=== PATIENT | male | born 1945 | race Caucasian/White ===

== ENCOUNTER 2018-05-10 10:36 | Observation (INO) | payer MEDICARE ==
[~2018-05-10] VITALS: Ht 182.9 cm; Wt 91.6 kg
[2018-05-10] MEDS ORDERED: NS(*) 0.9% 1000 ML BAG 1,000 ML IV ONE (10:44)
--- NOTE | 2018-05-10 10:49 | EKG ---
FACILITY: [facility] PATIENT NAME: DAVID CM : [id number] MR: [id number] V: [id number] EXAM DATE: ORDERING PHYSICIAN: LORETO GARNER TECHNOLOGIST: Bridget Warren Reason : Chest pain Blood Pressure : / mmHG Vent. Rate : 064 BPM Atrial Rate : 064 BPM P-R Int : 180 ms QRS Dur : 100 ms QT Int : 414 ms P-R-T Axes : -12 -24 000 degrees QTc Int : 427 ms Normal sinus rhythm Moderate voltage criteria for LVH, may be normal variant Borderline ECG No previous ECGs available Referred By: Confirmed By:
[2018-05-10] MEDS ORDERED: ATEN-1 PO (10:55)
[2018-05-10] MEDS ORDERED: ATEN-65 PO (10:55)
[2018-05-10] MEDS ORDERED: ASPI-870 (10:55)
[2018-05-10] MEDS ORDERED: [UNRECOGNIZED DRUG - OTHER] PO (10:57)
[2018-05-10] MEDS ORDERED: MULT-1335 PO (11:03)
[2018-05-10] MEDS ORDERED: NITR0.4T3 SL (11:03)
[2018-05-10] MEDS ORDERED: GABA-549 PO (11:03)
[2018-05-10] MEDS ORDERED: NATURE THROID (11:03)
[2018-05-10] MEDS ORDERED: CHOL10005 PO (11:03)
[2018-05-10] MEDS ORDERED: CALC600T63 PO (11:03)
[2018-05-10] MEDS ORDERED: NAPR220C12 PO (11:03)
[2018-05-10] MEDS ORDERED: FISH1CAP15 PO (11:03)
[2018-05-10] MEDS ORDERED: PRAV20TA65 PO (11:03)
[2018-05-10 11:10] LABS: PLATELET COUNT, AUTOMATED 144 K/uL (150-450)
--- NOTE | 2018-05-10 11:39 | ER Report ---
History and Physical Time Seen By MD: 10:35 Hx. of Stated Complaint: CHEST PAIN STARTED ABOUT AN HOUR AGO. PT TOOK ON NITRO ON HIS OWN THEN WENT TO OUR URGENT CARE. EMS CALLED EMS GAVE AN ADDITIONAL NITRO AND 324MG PO ASA. ATTEMPTED IV PER EMS FAILED PT ARRIVED VIA GURNEY ALERT ORIENTATED. IV STARTED. PT STATES HE HAS NAUSEA THAT COMES AND GOES NOT HUNGRY THIS AM R.T. AT BEDSIDE DOING EKG HPI/ROS CHIEF COMPLAINT: Chest pain HISTORY OF PRESENT ILLNESS: Patient is a 72-year-old male who was driving across country in his mobile home started noticing unilateral leg swelling this is been going on for the last couple of days he also noticed earlier in the day today some chest pain he has a history of a myocardial infarction about 10 years prior to no stents were placed says the chest pain is parasternal with some left arm involvement he also notes some numbness in his left arm as well the patient had associated shortness of breath but he is from [place] and is unfamiliar with altitude. Patient states no loosening or alleviating factors other that he took a sublingual nitroglycerin which did make it feel better and an aspirin. On arrival here his pain has subsided since 2 out of 10. Patient has no focal neurological deficits patient did notice that he had some numbness in his left hand which subsequently resolved. Patient has abdominal pain nausea vomiting diarrhea fever chills or additional complaints noted other than a mild headache which is also resolved REVIEW OF SYSTEMS: Respiratory: No cough, no dyspnea. Cardiovascular: Chest pain no palpitations Gastrointestinal: No vomiting, no abdominal pain. Musculoskeletal: No back pain. Remainder of the 14 system rev: Yes Allergies: Uncoded Allergies: CATS (Allergy, Severe, 05/10/18) Home Meds Reported Medications [Nature Throid] No Conflict Check, 2.75 GR QDAY 05/10/18 Nitroglycerin (NITROGLYCERIN) 0.4 Mg Tab.subl, 0.4 MG SL Q5MIN 05/10/18 Cholecalciferol (Vitamin D3) (VITAMIN D3) 1,000 Unit Tablet, 5000 UNIT PO QDAY, TAB 05/10/18 Pravastatin Sodium (PRAVACHOL) 20 Mg Tablet, 10 MG PO QDAY, TAB 05/10/18 Naproxen Sodium (ALEVE) 220 Mg Capsule, 220 MG PO TID Y for PRN, CAPSULE 05/10/18 Gabapentin (GABAPENTIN) 300 Mg Capsule, 300 MG PO BID, CAPSULE 05/10/18 Fish Oil/Dha/Epa (FISH OIL 1,200 MG FISH OIL) 1 Each Capsule, 1 EACH PO QDAY, CAPSULE 05/10/18 Multivitamin With Minerals (MULTIPLE VITAMIN) 1 Each Tablet, 1 EACH PO QDAY, TAB 05/10/18 Calcium Carbonate (CALCIUM) 600 Mg Tablet, 600 MG PO QDAY 05/10/18 [Black Raspberry] No Conflict Check, 425 MG PO DAILY 05/10/18 Atenolol (ATENOLOL) 25 Mg Tablet, 1 TAB PO QDAY, TAB 05/10/18 Aspirin (Children's Aspirin) 81 Mg Tab.chew, 81 MG QDAY 05/10/18 Reviewed Nurses Notes: Yes Old Medical Records Reviewed: Yes Hx Substance Use Disorder: No Hx Alcohol Use: Yes (OCC) Constitutional Vital Sign - Last 24 Hours 05/10/18 05/10/18 05/10/18 05/10/18 10:38 10:38 10:48 10:56 Temp 97.7 Pulse 71 52 Resp 12 17 B/P (MAP) 131/76 (94) 131/76 Pulse Ox 96 97 O2 Delivery Nasal Cannula O2 Flow Rate 4.0 05/10/18 05/10/18 05/10/18 05/10/18 11:00 11:06 11:11 11:25 Pulse 58 54 Resp 21 20 B/P (MAP) 137/73 (94) 141/74 (96) Pulse Ox 98 97 05/10/18 05/10/18 05/10/18 05/10/18 11:30 11:35 12:00 12:05 Pulse 49 51 Resp 18 23 B/P (MAP) 136/79 (98) 136/79 (98) Pulse Ox 98 98 05/10/18 05/10/18 05/10/18 05/10/18 12:30 12:35 13:00 13:10 Pulse 43 48 Resp 11 15 B/P (MAP) 146/73 (97) 157/75 (102) Pulse Ox 98 98 05/10/18 05/10/18 05/10/18 05/10/18 13:30 13:40 14:00 14:10 Pulse 43 53 Resp 17 11 B/P (MAP) 147/73 (97) 155/73 (100) Pulse Ox 99 94 Physical Exam General Appearance: [The patient is alert, has no immediate need for airway protection and no current signs of toxicity.] [ ] Eyes: Pupils equal and round no injection. Respiratory: Chest is non tender, lungs are clear to auscultation. Cardiac: regular rate and rhythm [ ] Gastrointestinal: Abdomen is soft and non tender, no masses, bowel sounds normal. Musculoskeletal: Neck: Neck is supple and non tender. Extremities have full range of motion and are non tender. Skin: No rashes or lesions. [ ] DIFFERENTIAL DIAGNOSIS: After history and physical exam differential diagnosis was considered for acute myocardial infarction pulmonary emboli stroke DVT aortic dissection Medical Decision Making Data Points Result Diagram: 05/10/18 1041 05/10/18 1041 Laboratory Hematology Test 05/10/18 10:41 05/10/18 11:25 05/10/18 13:23 Red Blood Count 4.92 M/uL (4.00-5.60) Mean Corpuscular Volume 82.7 fL (80.0-96.0) Mean Corpuscular Hemoglobin 29.4 pg (26.0-33.0) Mean Corpuscular Hemoglobin Concent 35.6 g/dL (32.0-36.0) Red Cell Distribution Width 13.4 % (11.5-14.5) Mean Platelet Volume 9.4 fL (7.2-11.1) Neutrophils (%) (Auto) 68.2 % (39.4-72.5) Lymphocytes (%) (Auto) 20.4 % (17.6-49.6) Monocytes (%) (Auto) 8.1 % (4.1-12.4) Eosinophils (%) (Auto) 2.4 % (0.4-6.7) Basophils (%) (Auto) 0.9 % (0.3-1.4) Nucleated RBC Relative Count (auto) 0.1 /100WBC Neutrophils # (Auto) 3.5 K/uL (2.0-7.4) Lymphocytes # (Auto) 1.0 K/uL (1.3-3.6) Monocytes # (Auto) 0.4 K/uL (0.3-1.0) Eosinophils # (Auto) 0.1 K/uL (0.0-0.5) Basophils # (Auto) 0.0 K/uL (0.0-0.1) Nucleated RBC Absolute Count (auto) 0.01 K/uL Sodium Level 138 mmol/L (137-145) Potassium Level 3.7 mmol/L (3.5-5.0) Chloride Level 104 mmol/L (98-107) Carbon Dioxide Level 25 mmol/L (22-30) Blood Urea Nitrogen 16 mg/dl (9-21) Creatinine 0.80 mg/dl (0.66-1.25) Glomerular Filtration Rate Calc > 60.0 Random Glucose 160 mg/dl (75-110) Calcium Level 8.9 mg/dl (8.4-10.2) Total Bilirubin 1.0 mg/dl (0.2-1.3) Aspartate Amino Transf (AST/SGOT) 52 U/L (0-35) Alanine Aminotransferase (ALT/SGPT) 79 U/L (0-56) Alkaline Phosphatase 59 U/L (0-126) Total Protein 6.6 g/dl (6.3-8.2) Albumin 3.8 g/dl (3.5-5.0) Prothrombin Time 13.0 seconds (12.0-14.4) Prothromb Time International Ratio 0.99 Activated Partial Thromboplast Time 24 seconds (23-35) D-Dimer Quantitative (PE/DVT) 0.48 ug/ml (0-0.50) Troponin I < 0.012 ng/ml Chemistry Test 05/10/18 10:41 05/10/18 11:25 05/10/18 13:23 White Blood Count 5.1 k/uL (4.5-11.0) Red Blood Count 4.92 M/uL (4.00-5.60) Hemoglobin 14.5 g/dL (14.0-18.0) Hematocrit 40.7 % (42.0-52.0) Mean Corpuscular Volume 82.7 fL (80.0-96.0) Mean Corpuscular Hemoglobin 29.4 pg (26.0-33.0) Mean Corpuscular Hemoglobin Concent 35.6 g/dL (32.0-36.0) Red Cell Distribution Width 13.4 % (11.5-14.5) Platelet Count 144 K/uL (150-450) Mean Platelet Volume 9.4 fL (7.2-11.1) Neutrophils (%) (Auto) 68.2 % (39.4-72.5) Lymphocytes (%) (Auto) 20.4 % (17.6-49.6) Monocytes (%) (Auto) 8.1 % (4.1-12.4) Eosinophils (%) (Auto) 2.4 % (0.4-6.7) Basophils (%) (Auto) 0.9 % (0.3-1.4) Nucleated RBC Relative Count (auto) 0.1 /100WBC Neutrophils # (Auto) 3.5 K/uL (2.0-7.4) Lymphocytes # (Auto) 1.0 K/uL (1.3-3.6) Monocytes # (Auto) 0.4 K/uL (0.3-1.0) Eosinophils # (Auto) 0.1 K/uL (0.0-0.5) Basophils # (Auto) 0.0 K/uL (0.0-0.1) Nucleated RBC Absolute Count (auto) 0.01 K/uL Glomerular Filtration Rate Calc > 60.0 Calcium Level 8.9 mg/dl (8.4-10.2) Total Bilirubin 1.0 mg/dl (0.2-1.3) Aspartate Amino Transf (AST/SGOT) 52 U/L (0-35) Alanine Aminotransferase (ALT/SGPT) 79 U/L (0-56) Alkaline Phosphatase 59 U/L (0-126) Total Protein 6.6 g/dl (6.3-8.2) Albumin 3.8 g/dl (3.5-5.0) Prothrombin Time 13.0 seconds (12.0-14.4) Prothromb Time International Ratio 0.99 Activated Partial Thromboplast Time 24 seconds (23-35) D-Dimer Quantitative (PE/DVT) 0.48 ug/ml (0-0.50) Troponin I < 0.012 ng/ml Coagulation Test 05/10/18 11:25 Prothrombin Time 13.0 seconds Prothromb Time International Ratio 0.99 Activated Partial Thromboplast Time 24 seconds D-Dimer Quantitative (PE/DVT) 0.48 ug/ml ED Course/Re-evaluation ED Course ED clinical course medical decision-making 72-year-old male comes here with left lower edematous swelling shortness of breath and chest pain is been driving for 12 hours DVT rule out of the lower extremity was negative CT angiogram showed some passive congestion otherwise no sign of pulmonary emboli EKG markers troponins were all negative patient has a history of prior CT he had chest pain relieved with nitroglycerin rating his arm and relieved on arrival to the emergency room the 2nd dose of nitroglycerin due to his cardiac history and the presence of pain relieved with nitroglycerin and his persistent chest discomfort we'll be admitting him for cardiac rule out Decision to Disposition Date: May 10, 2018 Decision to Disposition Time: 14:20 Depart Departure Latest Vital Signs Vital Signs Date Time Temp Pulse Resp B/P (MAP) Pulse Ox O2 Delivery O2 Flow Rate FiO2 05/10/18 14:10 53 11 94 05/10/18 14:00 155/73 (100) 05/10/18 10:48 4.0 05/10/18 10:38 97.7 Nasal Cannula Impression: Primary Impression: Chest pain Condition: Improved Disposition: Admitted from ER LORETO GARNER MD May 10, 2018 11:39
--- NOTE | 2018-05-10 11:47 | RADIOLOGY IMAGING REPORT ---
FACILITY: [facility] - [place] PATIENT NAME: Cornelio Mcdowell : 1945 MR: [id number] V: [id number] EXAM DATE: ORDERING PHYSICIAN: LORETO GARNER TECHNOLOGIST: Location: [facility] Patient: Cornelio Mcdowell : 1945 Visit/Account:[id number] Date of Sevice: 05/10/2018 CHEST PA AND LAT Additional pertinent History: Chest pain COMPARISON STUDIES: None FINDINGS: Support lines and catheters: None Lungs and Pleura: Lung robertson well expanded with no infiltrates or consolidations. No parenchymal ma ss lesions are seen. There are no effusions Heart and vasculature: Negative. Saige and Mediastinum: Negative. Bones and Chest wall: Bony structures unremarkable. No compression deformities or fractures. Ossif ication anterior longitudinal ligament with features of the thoracic spine compatible with ankylosing spondylitis. Upper Abdomen: Negative. IMPRESSION: 1. Negative chest for acute cardiopulmonary disease.. Thoracic spine with features suggesting ankyl osing spondylitis. Report Dictated By: Osbaldo Ring MD at 05/10/2018 11:38 AM Report E-Signed By: Osbaldo Ring MD at 05/10/2018 11:43 AM WSN:[email or web address]
[2018-05-10 11:55] LABS: INR 0.99
--- NOTE | 2018-05-10 12:45 | RADIOLOGY IMAGING REPORT ---
[place] [facility] [place] NAME: Cornelio Mcdowell : 1945 MR: [id number] V: [id number] EXAM DATE: ORDERING PHYSICIAN: LORETO GARNER TECHNOLOGIST: Location: [facility] [place] Patient: Cornelio Mcdowell : 1945 Visit/Account:[id number] Date of Sevice: 05/10/2018 EXAMINATION: Left LOWER EXTREMITY VENOUS DOPPLER ULTRASOUND DATE: 05/10/2018 12:35 PM CLINICAL INFORMATION: Evaluate for DVT REASON FOR STUDY: swelling, pain TECHNIQUE: Grayscale, color Doppler, and spectral Doppler ultrasound was performed of the lower extre mity veins to evaluate for deep venous thrombosis. COMPARISON: None FINDINGS: The left common femoral, femoral, and popliteal veins are compressible with normal flow on color Dopp ler imaging. There is also normal Doppler flow of the greater saphenous vein at the confluence with t he common femoral vein. The left posterior tibial and peroneal veins demonstrate normal flow The contralateral right common femoral vein demonstrates normal flow on color Doppler and respiratory variations on spectral Doppler. Anterior to the tibia within the subcutaneous soft tissues is an avascular approximately 1.9 x 0.5 cm predominantly anechoic collection that may contain some debris. IMPRESSION: 1. No evidence of deep venous thrombosis in the left lower extremity veins. 2. Predominantly anechoic fluid collection anterior to the tibia could potentially be a resolving hem atoma but is nonspecific by ultrasound. Report Dictated By: Pallavi Castillo MD at 05/10/2018 12:35 PM Report E-Signed By: Pallavi Castillo MD at 05/10/2018 12:41 PM WSN:[id number]
[2018-05-10] MEDS ORDERED: NS 0.9% 25 ML BAG 25 ML ONE ×2 (12:46→12:49)
[2018-05-10] MEDS ORDERED: IOPAMIDOL 76% 75 ML INFUS BTL 75 ML ONE (12:46)
--- NOTE | 2018-05-10 13:31 | RADIOLOGY IMAGING REPORT ---
FACILITY: PATIENT NAME: Cornelio Mcdowell : 1945 MR: [id number] V: [id number] EXAM DATE: ORDERING PHYSICIAN: LORETO GARNER TECHNOLOGIST: Location: [facility] Patient: Cornelio Mcdowell : 1945 Visit/Account:[id number] Date of Sevice: 05/10/2018 CT Head without contrast Indication: Weakness. Comparison: None available Technique: Axial CT images were obtained through the brain from the skull base to the vertex without administration of IV contrast. Reformatted coronal and sagittal images were also obtained. One of the following dose optimization techniques was utilized in the performance of this exam: autom ated exposure control; adjustment of the mA and/or kV according to the patient's size; or use of an i terative reconstruction technique. Specific details can be referenced in the facility's radiology CT exam operational policy. Findings: No evidence of mass, mass effect, or midline shift. No acute intracranial hemorrhage or acute territorial infarction. No extra-axial fluid collection or hydrocephalus. Mild age-related cerebral atrophy. No abnormal dens ity. Yost/white matter differentiation appears normal. Bony structures show no fractures or lesions. Rightward deviation nasal septum. The visualized paranasal sinuses and mastoid air cells are clear. IMPRESSION: 1. No acute intracranial abnormality. Report Dictated By: Pj Austin at 05/10/2018 1:23 PM Report E-Signed By: Pj Austin at 05/10/2018 1:27 PM WSN:[id number]
--- NOTE | 2018-05-10 13:35 | RADIOLOGY IMAGING REPORT ---
[place] [facility] [place]: Cornelio Mcdowell : 1945 MR: [id number] V: [id number] EXAM DATE: ORDERING PHYSICIAN: EMILIANA BEJARANO TECHNOLOGIST: Location: [facility] Patient: Cornelio Mcdowell : 1945 Visit/Account:[id number] Date of Sevice: 05/10/2018 CT ANGIOGRAM OF THE CHEST WITH INTRAVENOUS CONTRAST, PE PROTOCOL DATE OF EXAM: 05/10/2018 11:57 COMPARISON: Chest radiograph of the same day. INDICATION: eval for PE. TECHNIQUE: Contrast enhanced chest CT performed during the injection of 75 ml of Isovue-370. Three-d imensional (MIP) reconstructions were performed. FINDINGS: There is no pulmonary arterial filling defect. No effusion, consolidation, or pneumothorax. Mild depe ndent atelectasis at the lung bases. Thyroid: The thyroid appears to have been resected. Thoracic inlet: There is no thoracic inlet lymphadenopathy. Heart and great vessels: Heart size is normal. Mediastinum and pamela: A few mediastinal lymph nodes are mildly prominent. Lungs and pleura: As above. Breast and axilla: Breast tissue is unremarkable by CT. Bones and soft tissues: Bone density is diffusely decreased. Thoracic kyphosis is exaggerated. There is fusion along much of the anterior longitudinal ligament and across numerous spinous processes. Upper abdomen: Liver parenchymal density is markedly decreased. IMPRESSION: 1. Negative for pulmonary arterial embolus. The lungs are clear except for trace atelectasis. 2. Marked hepatic steatosis. 3. Anterior longitudinal ligament and spinous process fusion in the thoracic spine with exaggerated t horacic kyphosis suggests ankylosing spondylitis. One of the following dose optimization techniques was utilized in the performance of this exam: Autom ated exposure control; adjustment of the mA and/or kV according to the patient's size; or use of an i terative reconstruction technique. Specific details can be referenced in the facility's radiology C T exam operational policy. Report Dictated By: Pallavi Castillo MD at 05/10/2018 1:23 PM Report E-Signed By: Pallavi Castillo MD at 05/10/2018 1:29 PM WSN:[id number]
[2018-05-10 14:39] VITALS: BP 157/71
[2018-05-10] MEDS ORDERED: MORPHINE 4 MG/ML SDV IVP PRN (15:15)
[2018-05-10] MEDS ORDERED: NITROGLYCERIN 0.4 MG SUBL SL PRN (15:15)
[2018-05-10] MEDS ORDERED: ACETAMINOPHEN 325 MG TAB PO PRN (15:15)
--- NOTE | 2018-05-10 15:46 | History & Physical ---
History of Present Illness Chief Complaint Chest pain History of Present Illness He presented with chest pain, which extended into his jaw and left arm to the urgent care. He states they called EMS for him and was given two doses of Nitro and Aspirin by EMS. He states that the nitro did relieve his chest pain. He states he has been driving across country in his mobile home from [place]. He does have some left lower extremity swelling, which he related to trauma. He hit his leg five days ago on the [place] and has some bruising and swelling present. He does have history of myocardial infarction from 2007, which did not require any stent intervention. He does now carry nitro for chest pain, which he has not required until today. He reports the chest pain has now resided. He was recommended for admission for cardiac rule out. History Problems: (1) Hypertension Status: Chronic (2) Hyperlipidemia Status: Chronic (3) Myocardial infarction Home Meds Reported Medications [Nature Throid] No Conflict Check, 2.75 GR QDAY 05/10/18 Nitroglycerin (NITROGLYCERIN) 0.4 Mg Tab.subl, 0.4 MG SL Q5MIN 05/10/18 Cholecalciferol (Vitamin D3) (VITAMIN D3) 1,000 Unit Tablet, 5000 UNIT PO QDAY, TAB 05/10/18 Pravastatin Sodium (PRAVACHOL) 20 Mg Tablet, 10 MG PO QDAY, TAB 05/10/18 Naproxen Sodium (ALEVE) 220 Mg Capsule, 220 MG PO TID Y for PRN, CAPSULE 05/10/18 Gabapentin (GABAPENTIN) 300 Mg Capsule, 300 MG PO BID, CAPSULE 05/10/18 Fish Oil/Dha/Epa (FISH OIL 1,200 MG FISH OIL) 1 Each Capsule, 1 EACH PO QDAY, CAPSULE 05/10/18 Multivitamin With Minerals (MULTIPLE VITAMIN) 1 Each Tablet, 1 EACH PO QDAY, TAB 05/10/18 Calcium Carbonate (CALCIUM) 600 Mg Tablet, 600 MG PO QDAY 05/10/18 [Black Raspberry] No Conflict Check, 425 MG PO DAILY 05/10/18 Atenolol (ATENOLOL) 25 Mg Tablet, 1 TAB PO QDAY, TAB 05/10/18 Aspirin (Children's Aspirin) 81 Mg Tab.chew, 81 MG QDAY 05/10/18 Allergies: Uncoded Allergies: CATS (Allergy, Severe, 05/10/18) Hx Smoking: Yes Smoking Status: Former Smoker When Quit Tobacco?: 1980 Caffeine Intake: Tea Caffeine/Cups Per Day: 1 Hx Alcohol Use: Yes (OCC) Hx Substance Use Disorder: No Review of Systems All Systems Reviewed/Normal: Yes, Except as Noted Exam Vital Signs Vital Signs Date Time Temp Pulse Resp B/P (MAP) Pulse Ox O2 Delivery O2 Flow Rate FiO2 05/10/18 15:02 43 05/10/18 14:39 97.4 14 157/71 (99) 99 Room Air 05/10/18 10:48 4.0 General Appearance: Alert, Awake, No Acute Distress, Afebrile Neuro: No Gross deficits Cardiovascular: Regular Rate and Rhythm Respiratory: No Respiratory Distress, Clear to Auscultation GI: Abd Soft and Non-Tender Extremities: Perfused, Edema (left lower extremity swelling, non pitting ) Integumentary: Other (bruising noted to the left medial aspect of foot) Psych: Alert & Oriented X3, Appropriate Mood & Affect Medical Decision Making Data Points Result Diagram: 05/10/18 1041 05/10/18 1041 EKG / Imaging Monitor Interpretation: Normal Sinus Rhythm Imaging Chest CTA, Head CT, Venogram and Chest X-Ray reviewed. Pre-Admit Course Medical Record Review: Yes Assessment and Plan Problems: (1) Chest pain Status: Acute Assessment & Plan: He was admitted with left sided chest pain, which extended into his left arm and jaw. He reported relief after nitroglycerin. He had two negative troponin levels prior to admission. We will check troponin levels and monitor telemetry. We will order nitro and morphine for chest pain. (2) Hypertension Status: Chronic Assessment & Plan: He is on chronic treatment with Atenolol. (3) Hyperlipidemia Status: Chronic Assessment & Plan: He is on chronic treatment with Pravastatin. (4) Myocardial infarction Assessment & Plan: In 2007. Did not receive cardiac stents. Takes baby aspirin daily. Venous Thromboembolism Antithrombotics Is Pt On Any Antithrombotics?: Yes Exam Sepsis Risk: No Definite Risk [place] [employer] May 10, 2018 15:46
[2018-05-10 20:51] VITALS: BP 161/81
[2018-05-10] MEDS: GABAPENTIN 300 MG CAP PO SCH (21:00)
[2018-05-10] MEDS ORDERED: PRAVASTATIN SOD 20 MG TAB PO SCH (21:00)
[2018-05-10] MEDS ORDERED: PATIENT'S OWN MED PO SCH (21:00)
[2018-05-11 00:02] VITALS: BP 146/74
[2018-05-11 05:26] VITALS: BP 132/72
[2018-05-11 07:57] VITALS: BP 148/82
[2018-05-11] MEDS ORDERED: THYROID 162.5 MG PO SCH (09:00)
[2018-05-11] MEDS ORDERED: ENOXAPARIN 40 MG/0.4ML SYR SC SCH (09:00)
[2018-05-11] MEDS ORDERED: ASPIRIN 81 MG CHEW PO SCH (09:00)
[2018-05-11] MEDS ORDERED: ATENOLOL 25 MG TAB PO SCH (09:00)
[2018-05-11] MEDS: GABAPENTIN 300 MG CAP PO SCH (09:16)
--- NOTE | 2018-05-11 11:46 | Hospitalist Depart ---
Discharge Summary Reason for Hosp/Final Diag: (1) Chest pain Status: Acute Hospital Course & Plan: He was admitted with left sided chest pain, which extended into his left arm and jaw. He reported relief after nitroglycerin. ECG had no ST abnormalities and it appears unchanged from a previous ECG that had been faxed to us. He has been symptom free since admission. He has had 3 negative troponin levels. He is to follow up with his Director Market Research in 1-2 weeks for follow up. He has been instructed to go to the ER for return of symptoms. (2) Hypertension Status: Chronic Hospital Course & Plan: He is on chronic treatment with Atenolol. (3) Hyperlipidemia Status: Chronic Hospital Course & Plan: He is on chronic treatment with Pravastatin. (4) Myocardial infarction Hospital Course & Plan: In 2007. Did not receive cardiac stents. Takes baby aspirin daily. Departure Weight (Pounds): 202 Result Diagram: 05/10/18 1041 05/10/18 1041 Item Value Date Time Neutrophils (%) (Auto) 68.2 % 05/10/18 1041 Lymphocytes (%) (Auto) 20.4 % 05/10/18 1041 D-Dimer Quantitative (PE/DVT) 0.48 ug/ml 05/10/18 1125 Prothromb Time International Ratio 0.99 05/10/18 1125 Troponin I < 0.012 ng/ml 05/10/18 2140 Troponin I < 0.012 ng/ml 05/10/18 1323 Troponin I < 0.012 ng/ml 05/10/18 1041 Total Bilirubin 1.0 mg/dl 05/10/18 1041 Aspartate Amino Transf (AST/SGOT) 52 U/L H 05/10/18 1041 Alanine Aminotransferase (ALT/SGPT) 79 U/L H 05/10/18 1041 Alkaline Phosphatase 59 U/L 05/10/18 1041 Imaging Chest CTA - 1. Negative for pulmonary arterial embolus. The lungs are clear except for trace atelectasis. 2. Marked hepatic steatosis. 3. Anterior longitudinal ligament and spinous process fusion in the thoracic spine with exaggerated thoracic kyphosis suggests ankylosing spondylitis. Head CT - 1. No acute intracranial abnormality. Venogram of RLE - 1. No evidence of deep venous thrombosis in the left lower extremity veins. 2. Predominantly anechoic fluid collection anterior to the tibia could potentially be a resolving hematoma but is nonspecific by ultrasound. CXR - 1. Negative chest for acute cardiopulmonary disease.. Thoracic spine with features suggesting ankylosing spondylitis. EKG Vent. Rate : 064 BPM Atrial Rate : 064 BPM P-R Int : 180 ms QRS Dur : 100 ms QT Int : 414 ms P-R-T Axes : -12 -24 000 degrees QTc Int : 427 ms Normal sinus rhythm Moderate voltage criteria for LVH, may be normal variant Borderline ECG No previous ECGs available Condition: Improved Discharge: Home Discharge Instructions Home Meds Reported Medications [Nature Throid] No Conflict Check, 2.75 GR QDAY 05/10/18 Nitroglycerin (NITROGLYCERIN) 0.4 Mg Tab.subl, 0.4 MG SL Q5MIN 05/10/18 Cholecalciferol (Vitamin D3) (VITAMIN D3) 1,000 Unit Tablet, 5000 UNIT PO QDAY, TAB 05/10/18 Pravastatin Sodium (PRAVACHOL) 20 Mg Tablet, 10 MG PO QDAY, TAB 05/10/18 Naproxen Sodium (ALEVE) 220 Mg Capsule, 220 MG PO TID Y for PRN, CAPSULE 05/10/18 Gabapentin (GABAPENTIN) 300 Mg Capsule, 300 MG PO BID, CAPSULE 05/10/18 Fish Oil/Dha/Epa (FISH OIL 1,200 MG FISH OIL) 1 Each Capsule, 1 EACH PO QDAY, CAPSULE 05/10/18 Multivitamin With Minerals (MULTIPLE VITAMIN) 1 Each Tablet, 1 EACH PO QDAY, TAB 05/10/18 Calcium Carbonate (CALCIUM) 600 Mg Tablet, 600 MG PO QDAY 05/10/18 [Black Raspberry] No Conflict Check, 425 MG PO DAILY 05/10/18 Atenolol (ATENOLOL) 25 Mg Tablet, 1 TAB PO QDAY, TAB 05/10/18 Aspirin (Children's Aspirin) 81 Mg Tab.chew, 81 MG QDAY 05/10/18 Diet: Regular Activity: As Tolerated Special Instructions: Follow up with your Director Market Research in 1-2 weeks. Bring a copy of the Discharge Summary, labs, and ECG's to the appointment. Go to the ER for chest pain/left arm pain/jaw pain Venous Thromboembolism Antithrombotics Is Pt On Any Antithrombotics?: Yes MANUEL BUTLER MD May 11, 2018 11:46
[2018-05-11 12:23] VITALS: Ht 182.9 cm; Wt 91.6 kg
[2018-05-11 13:00] VITALS: BP 147/74
== END 2018-05-11 11:37 | disposition home or self-care (01) ==
LOC: ER 10:40 → INTOOBSV 14:12 → MED 14:12
PROVIDERS: ADMIT Internal Medicine; ATTEND Internal Medicine
DX: R07.89 Other chest pain (principal); I10 Essential (primary) hypertension; E78.5 Hyperlipidemia, unspecified; I25.2 Old myocardial infarction
CPT/HCPCS: 36415; 70450; 71046; 71275; 84484; 85025; 85379; 85610; 85730; 93005; 93971; 96360; 96361; 96372; 99285; A9270; G0378; J1650; J7030; Q9967; 82040; 82247; 82310; 82374; 82435; 82565; 82947; 84075; 84132; 84155; 84295; 84450; 84460; 84520

== ENCOUNTER → 2018-05-10 | Outpatient (CLI) | payer MEDICARE ==
[~2018-05-10] MED LIST: ASPI-870; ATEN-1 PO; ATEN-65 PO; CALC600T63 PO; CHOL10005 PO; FISH1CAP15 PO; GABA-549 PO; MULT-1335 PO; NAPR220C12 PO; NATURE THROID; NITR0.4T3 SL; PRAV20TA65 PO; [UNRECOGNIZED DRUG - OTHER] PO
[2018-05-11 12:23] VITALS: BMI 27.4
== END ==
LOC: AMB 10:17
PROVIDERS: ATTEND Nurse Practitioner
DX: R07.1 Chest pain on breathing (principal); R60.9 Edema, unspecified; R51 Headache
CPT/HCPCS: A0425; A0427